=== PATIENT | female | born 1950 | race Caucasian/White ===

== ENCOUNTER 2017-12-09 10:33 | Emergency (ER) | payer MEDICARE, OTHER ==
[2017-12-09 10:40] VITALS: BMI 46.5
[2017-12-09] MEDS: ALBUTEROL SO4 2.5/IPRATROPIUM 0.5 INH SOL 3 ML VIAL.NEB. NEB SCH ×4 (10:40→12:01)
[2017-12-09] MEDS ORDERED: DEXAMETHASONE LIQUID 0.5 MG/5 ML 240 ML BULK BOTTLE PO ONE (11:13)
[2017-12-09] MEDS ORDERED: DEXAMETHASONE SOD PHOSPHATE 10 MG/1 ML VIAL ONE (11:16)
[2017-12-09] MEDS ORDERED: ALBUTEROL SO4 2.5/IPRATROPIUM 0.5 INH SOL 3 ML VIAL.NEB. NEB ONE (11:16)
--- NOTE | 2017-12-09 11:17 | PDOC ---
History of Present Illness - General Chief Complaint: Asthma Stated Complaint: ASTHMA Time Seen by Provider: 12/09/17 11:09 - History of Present Illness Initial Comments: 67-year-old female presents for evaluation of 4 days of cough. She has a history of asthma her symptoms have been unresolved with home albuterol. Past medical history significant for hypertension and dyslipidemia as well as diabetes. She complains of subjective fever at night. No significant past surgical history she denies it. NO KNOWN DRUG ALLERGIES 12/09/17 11:15 Past History - Past Medical History Allergies/Adverse Reactions: Allergies Allergy/AdvReac Type Severity Reaction Status Date / Time No Known Allergies Allergy Verified 12/09/17 10:37 Home Medications: Ambulatory Orders Lantus 50 unit SQ AM 08/18/11 Lipitor 20 mg PO AM 08/18/11 NovoLOG 5 - 10 unit SQ ASDIR 08/18/11 Zoloft 50 mg PO AM 08/18/11 Insulin (Levemir) [Levemir Flexpen -] 25 units SQ ACBK pen 02/16/15 Valsartan [Diovan] 160 mg PO DAILY tablet 02/16/15 metFORMIN HCL [Glucophage -] 500 mg PO DAILY tablet 02/16/15 Anemia: No Asthma: Yes Cancer: No Cardiac Disorders: No CVA: No COPD: No CHF: No Dementia: No Diabetes: Yes (iddm) GI Disorders: No Disorders: No HTN: Yes Hypercholesterolemia: Yes Liver Disease: No Seizures: No Thyroid Disease: No - Surgical History Abdominal Surgery: Yes (tubal ligation,umb hernia) Appendectomy: No Cardiac Surgery: No Cholecystectomy: Yes Lung Surgery: No Neurologic Surgery: No Orthopedic Surgery: No - Immunization History Immunization Up to Date: Yes - Suicide/Smoking/Psychosocial Hx Smoking History: Never smoked Have you smoked in the past 12 months: No Hx Alcohol Use: No Drug/Substance Use Hx: No Substance Use Type: None Hx Substance Use Treatment: No Review of Systems - Review of Systems Constitutional: Yes: Fever HEENTM: Yes: See HPI Respiratory: Yes: Cough, Shortness of Breath, Wheezing Cardiac (ROS): No: Chest Pain ABD/GI: Yes: See HPI : No: See HPI All Other Systems: Reviewed and Negative *Physical Exam - Vital Signs Last Vital Signs Temp Pulse Resp BP Pulse Ox 98.5 F 84 22 158/87 99 12/09/17 10:37 12/09/17 10:37 12/09/17 10:37 12/09/17 10:37 12/09/17 10:37 - Physical Exam Comments: GENERAL: [The patient is awake, alert, and fully oriented, in no acute distress. ] HEAD: [Normal with no signs of trauma.] EYES: [Pupils equal, round and reactive to light, extraocular movements intact, sclera anicteric, conjunctiva clear.] ENT: [Ears normal, nares patent, oropharynx clear without exudates. Moist mucous membranes.] NECK: [Normal range of motion, supple without lymphadenopathy, JVD, or masses.] LUNGS: [She has diffuse coarse rhonchi and wheezes.] HEART: [Regular rate and rhythm, normal S1 and S2 without murmur, rub or gallop. ] ABDOMEN: [Soft, nontender, normoactive bowel sounds. No guarding, no rebound. No masses.] EXTREMITIES: [Normal range of motion, no edema. No clubbing or cyanosis. No cords, erythema, or tenderness.] NEUROLOGICAL: [Cranial nerves II through XII grossly intact. Normal speech, normal gait.] PSYCH: [Normal mood, normal affect.] SKIN: [Warm, Dry, normal turgor, no rashes or lesions noted.] 12/09/17 11:16 ED Treatment Course - RADIOLOGY Radiology Studies Ordered: Category Date Time Status CHEST - PA [RAD] Stat Radiology 12/09/17 11:14 Ordered Medical Decision Making - Medical Decision Making Symptoms unresolved after 4 albuterol DuoNeb treatments. Discussed a plan for admission and she is in agreement. 12/09/17 12:34 12/09/17 12:36 Discussed with ER PA who will accept the patient for further evaluation and treatment and possibly admission *DC/Admit/Observation/Transfer Diagnosis at time of Disposition: Asthma attack - Discharge Dispostion Condition at time of disposition: Unchanged/Unknown Decision to Admit order: Yes Decision to Admit order Date/Time: Will admit her for an asthma 12/09/17 12:35 - Referrals - Patient Instructions - Post Discharge Activity
--- NOTE | 2017-12-09 12:30 | PDOC ---
*Physical Exam - Vital Signs Last Vital Signs Temp Pulse Resp BP Pulse Ox 98.5 F 84 22 158/87 99 12/09/17 10:37 12/09/17 10:37 12/09/17 10:37 12/09/17 10:37 12/09/17 10:37 - Physical Exam General Appearance: Yes: Appropriately Dressed. No: Apparent Distress HEENT: positive: Normal Voice Neck: positive: Supple Respiratory/Chest: positive: Wheezing. negative: Respiratory Distress Cardiovascular: positive: Regular Rate, S1, S2 Extremity: positive: Normal Inspection. negative: Swelling Integumentary: positive: Dry, Warm Neurologic: positive: Fully Oriented, Alert, Normal Mood/Affect ED Treatment Course - Medications Given in the ED: ED Medications Discontinued Medications Generic Name Dose Route Start Last Admin Trade Name Freq PRN Reason Stop Dose Admin Albuterol/Ipratropium 1 amp 12/09/17 11:15 12/09/17 12:01 Duoneb - NEB 12/09/17 12:01 1 amp Q15M JORGE Administration Dexamethasone 10 mg 12/09/17 11:13 12/09/17 11:22 Decadron Liquid - PO 12/09/17 11:14 10 mg ONCE ONE Administration Medical Decision Making - Medical Decision Making 12/09/17 12:30 Pt bumped over from fast track and received sign out from PT Halle [id number] female, history of hypertension, diabetes, asthma, admissions or intubations, here with sob and wheezing, similar to her asthma exacerbation found to be stable but diffusely wheezing in fast track and has since been given multiple DuoNeb and steroids, but continues to wheeze. Chest x-ray normal. Will get EKG, labs, ordered dose of mag and reassess 12/09/17 14:56 Patient signed out to Dr. Cameron awaiting labs and reassessment *DC/Admit/Observation/Transfer Diagnosis at time of Disposition: Asthma attack Qualifiers: Asthma severity: unspecified severity Asthma persistence: unspecified Qualified Code(s): J45.901 - Unspecified asthma with (acute) exacerbation - Discharge Dispostion Condition at time of disposition: Unchanged/Unknown - Referrals - Patient Instructions - Post Discharge Activity
[2017-12-09] MEDS ORDERED: MAGNESIUM SULF 50% (8.12 MEQ/2 ML-1 GM VIAL) IVPB ONE (12:31)
[2017-12-09] MEDS ORDERED: MAGNESIUM SULF 50% (8.12 MEQ/2 ML-1 GM VIAL) ONE (13:50)
[2017-12-09] MEDS ORDERED: AZITHROMYCIN 500 MG TABLET PO ONE (14:58)
--- NOTE | 2017-12-09 15:06 | PDOC ---
*Physical Exam - Vital Signs Last Vital Signs Temp Pulse Resp BP Pulse Ox 98.5 F 84 22 158/87 99 12/09/17 10:37 12/09/17 10:37 12/09/17 10:37 12/09/17 10:37 12/09/17 10:37 - Physical Exam Comments: 12/09/17 15:00 Gen: aaox3, cough- bronchospastic heart: +s1s2 tachy lungs: diffuse wheezing, coarse bs b/l abd: soft, obese ED Treatment Course - LABORATORY CBC & Chemistry Diagram: 12/09/17 15:02 12/09/17 15:02 - Medications Given in the ED: ED Medications Discontinued Medications Generic Name Dose Route Start Last Admin Trade Name Freq PRN Reason Stop Dose Admin Albuterol/Ipratropium 1 amp 12/09/17 11:15 12/09/17 12:01 Duoneb - NEB 12/09/17 12:01 1 amp Q15M JORGE Administration Dexamethasone 10 mg 12/09/17 11:13 12/09/17 11:22 Decadron Liquid - PO 12/09/17 11:14 10 mg ONCE ONE Administration Magnesium Sulfate 2 gm 12/09/17 12:31 12/09/17 13:50 Magnesium Sulfate IVPB 12/09/17 12:32 2 gm ONCE ONE Administration Medical Decision Making - Medical Decision Making 12/09/17 15:05 a/p: 67yo female signed out pending labs, cxr, further eval of asthma exacerbation -cxr without acute infiltrate -wheezing still despite nebs, steroids, mag -feeling better, but still with cough -labs pending, will continue to monitor -pt upgraded from Fast Track *DC/Admit/Observation/Transfer Diagnosis at time of Disposition: Asthma attack Qualifiers: Asthma severity: unspecified severity Asthma persistence: unspecified Qualified Code(s): J45.901 - Unspecified asthma with (acute) exacerbation - Discharge Dispostion Disposition: HOME Condition at time of disposition: Good - Prescriptions Prescriptions: Albuterol Sulfate Inhaler - [Ventolin HFA Inhaler -] 1 - 2 inh PO QID #1 inhaler Azithromycin 250 mg PO DAILY #4 tablet Guaifenesin 200 mg PO BID #10 tablet predniSONE [Deltasone -] 40 mg PO DAILY #4 tablet - Referrals - Patient Instructions Printed Discharge Instructions: DI for Asthma -- Adult Additional Instructions: You were seen today in the ED for an asthma exacerbation. Please return if you have any new, worsening or concerning symptoms. Please follow up with your primary care physician. You were prescribed an antibiotic today. Your next dose will be tomorrow. Please complete the entire course of antibiotics even if you feel better. You were prescribed steroids today. Your next dose will be tomorrow. Please complete the entire course of steroids even if you feel better. - Post Discharge Activity - Attestations Physician Attestion: 12/10/17 21:37 I, Dr. Dorothy Henning, DO, attest that this document has been prepared under my direction and personally reviewed by me in its entirety. I further attest, that it accurately reflects all work, treatment, procedures and medical decision -making performed by me.
[2017-12-09] MEDS ORDERED: AZITHROMYCIN 250 MG TABLET ONE (15:11)
[2017-12-09 15:41] LABS: BASO % 0.5 % (0-2.0); EOS % 0.3 % (0-4.5); HEMATOCRIT 35.4 % (32.4-45.2); HEMOGLOBIN 11.1 GM/dL (10.7-15.3); LYMPH % 10.7 % (8-40); MCH 22.1 pg (25.7-33.7); MCHC 31.5 g/dl (32.0-36.0); MEAN CELL VOLUME 70.2 fl (80-96); MEAN PLT VOLUME 9.1 fl (7.5-11.1); MONO % 2.4 % (3.8-10.2); NEUT % 86.1 % (42.8-82.8); PLATELET COUNT 213 K/MM3 (134-434); RBC 5.04 M/mm3 (3.60-5.2); RDW 17.8 % (11.6-15.6); WHITE BLOOD COUNT 4.7 K/mm3 (4.0-10.0)
[2017-12-09 16:08] LABS: ALBUMIN 3.9 g/dl (3.4-5.0); ANION GAP 10 (8-16); BILIRUBIN,TOTAL 0.2 mg/dL (0.2-1.0); BLOOD UREA NITROGEN 15 mg/dL (7-18); CALCIUM 8.9 mg/dL (8.5-10.1); CHLORIDE 100 mmol/L (98-107); CO2 27 mmol/L (21-32); CREATININE 0.8 mg/dL (0.55-1.02); GLUCOSE,RANDOM 200 mg/dL (74-106); POTASSIUM 4.2 mmol/L (3.5-5.1); SGOT/AST 49 U/L (15-37); SGPT/ALT 46 U/L (12-78); SODIUM 137 mmol/L (136-145); TOT PROT 8.1 g/dl (6.4-8.2)
[2017-12-09 16:09] LABS: ALK PHOS 73 U/L (45-117)
--- NOTE | 2017-12-09 16:27 | PDOC ---
*Physical Exam - Vital Signs Last Vital Signs Temp Pulse Resp BP Pulse Ox 98.5 F 84 22 158/87 99 12/09/17 10:37 12/09/17 10:37 12/09/17 10:37 12/09/17 10:37 12/09/17 10:37 - Physical Exam Comments: 12/09/17 16:11 GENERAL: Awake, alert, and fully oriented, in no acute distress HEAD: No signs of trauma, normocephalic, atraumatic EYES: PERRLA, EOMI, sclera anicteric, conjunctiva clear ENT: Auricles normal inspection, hearing grossly normal, nares patent, oropharynx clear without exudates. Moist mucosa NECK: Normal ROM, supple, no lymphadenopathy, JVD, or masses LUNGS: No distress. Positive for rales and wheezing. No tachypnea. HEART: Regular rate and rhythm, normal S1 and S2, no murmurs, rubs or gallops, peripheral pulses normal and equal bilaterally. EXTREMITIES: Normal inspection, Normal range of motion, no edema. No clubbing or cyanosis. NEUROLOGICAL: Cranial nerves II through XII grossly intact. Normal speech, normal gait, no focal sensorimotor deficits SKIN: Warm, Dry, normal turgor, no rashes or lesions noted. ED Treatment Course - LABORATORY CBC & Chemistry Diagram: 12/09/17 15:02 12/09/17 15:02 - Medications Given in the ED: ED Medications Discontinued Medications Generic Name Dose Route Start Last Admin Trade Name Freq PRN Reason Stop Dose Admin Albuterol/Ipratropium 1 amp 12/09/17 11:15 12/09/17 12:01 Duoneb - NEB 12/09/17 12:01 1 amp Q15M JORGE Administration Azithromycin 500 mg 12/09/17 14:58 12/09/17 15:00 Azithromycin PO 12/09/17 14:59 500 mg ONCE ONE Administration Dexamethasone 10 mg 12/09/17 11:13 12/09/17 11:22 Decadron Liquid - PO 12/09/17 11:14 10 mg ONCE ONE Administration Magnesium Sulfate 2 gm 12/09/17 12:31 12/09/17 13:50 Magnesium Sulfate IVPB 12/09/17 12:32 2 gm ONCE ONE Administration Medical Decision Making - Medical Decision Making 12/09/17 16:27 Patient is a 67F with history of asthma here today with asthma exacerbation. Improved with duonebs x4, mag. Labs pending. CXR clear. Labs pending. Given 500mg azithromycin. 12/09/17 16:35 Laboratory Tests 12/09/17 12/09/17 15:02 15:02 WBC 4.7 Hgb 11.1 Plt Count 213 D BUN 15 Creatinine 0.8 Random Glucose 200 H CBC normal. CMP reassuring. Patient is improved and ambulating without shortness of breath. Will discharge home with return precautions. *DC/Admit/Observation/Transfer Diagnosis at time of Disposition: Asthma attack Qualifiers: Asthma severity: unspecified severity Asthma persistence: unspecified Qualified Code(s): J45.901 - Unspecified asthma with (acute) exacerbation - Discharge Dispostion Disposition: HOME Condition at time of disposition: Good Decision to Admit order: No - Prescriptions Prescriptions: Albuterol Sulfate Inhaler - [Ventolin HFA Inhaler -] 1 - 2 inh PO QID #1 inhaler Azithromycin 250 mg PO DAILY #4 tablet Guaifenesin 200 mg PO BID #10 tablet predniSONE [Deltasone -] 40 mg PO DAILY #4 tablet - Referrals - Patient Instructions Printed Discharge Instructions: DI for Asthma -- Adult Additional Instructions: You were seen today in the ED for an asthma exacerbation. Please return if you have any new, worsening or concerning symptoms. Please follow up with your primary care physician. You were prescribed an antibiotic today. Your next dose will be tomorrow. Please complete the entire course of antibiotics even if you feel better. You were prescribed steroids today. Your next dose will be tomorrow. Please complete the entire course of steroids even if you feel better. - Post Discharge Activity
[2017-12-09 17:04] VITALS: BP 160/88; PULSE 89; TEMP 98.2
== END 2017-12-09 17:04 | disposition home or self-care (01) ==
LOC: JERFT 10:33 → JER 10:33
PROC: 3E0F7GC Introduction of Other Therapeutic Substance into Respiratory Tract, Via Natural or Artificial Opening (ICD-10-PCS; principal; 2017-12-09)
PROC: 3E033GC Introduction of Other Therapeutic Substance into Peripheral Vein, Percutaneous Approach (ICD-10-PCS; 2017-12-09)
DX: J45.901 Unspecified asthma with (acute) exacerbation (principal); I10 Essential (primary) hypertension; E78.00 Pure hypercholesterolemia, unspecified; E11.9 Type 2 diabetes mellitus without complications
CPT/HCPCS: 36415; 71045-TC-FY; 80053; 85025; 99283-25; J7620

== ENCOUNTER 2019-01-03 15:45 | Observation (INO) | payer OTHER ==
[2019-01-03 15:53] VITALS: BMI 45.5
--- NOTE | 2019-01-03 17:46 | PDOC ---
History of Present Illness - General Chief Complaint: Chest Pain Stated Complaint: CHEST PAIN Time Seen by Provider: 01/03/19 17:46 History Source: Patient Exam Limitations: No Limitations - History of Present Illness Initial Comments: 01/03/19 18:04 68 year old female with PMH HTN, DM, HLD, asthma panic disorder presented to ED for chest pain x1 week. Pt stated her chest pain is intermittent, substernal, nonradiating, no alleviating or aggravating factors, no association with exertion, no association with exertion, lasting 10-20 minutes at a time, occurring around four days a week. Allergies: NKDA Family cardiac history - Father (+) [place] in 60s. Mother (-) for [place]. Siblings (-) for [place]. Past History - Past Medical History Allergies/Adverse Reactions: Allergies Allergy/AdvReac Type Severity Reaction Status Date / Time No Known Allergies Allergy Verified 01/03/19 15:53 Home Medications: Ambulatory Orders Acetaminophen [Tylenol .Extra-Strength -] 500 mg PO DAILY PRN 01/04/19 Aspirin 81 mg PO DAILY 01/04/19 Buspirone HCl [Buspar -] 5 mg PO BID 01/04/19 Cetirizine HCl 10 mg PO DAILY 01/04/19 Insulin Glargine,Hum.rec.anlog [Lantus] 80 unit SQ AM 01/04/19 Sertraline HCl [Zoloft -] 50 mg PO DAILY 01/04/19 Valsartan 160 mg PO DAILY 01/04/19 Zolpidem Tartrate [Ambien] 5 mg PO DAILY 01/04/19 metFORMIN HCL [Glucophage -] 1,000 mg PO BID 01/04/19 Anemia: No Asthma: Yes Cancer: No Cardiac Disorders: No CVA: No COPD: No CHF: No Dementia: No Diabetes: Yes (iddm) GI Disorders: No Disorders: No HTN: Yes Hypercholesterolemia: Yes Liver Disease: No Seizures: No Thyroid Disease: No - Surgical History Abdominal Surgery: Yes (tubal ligation,umb hernia) Appendectomy: No Cardiac Surgery: No Cholecystectomy: Yes Lung Surgery: No Neurologic Surgery: No Orthopedic Surgery: No - Immunization History Immunization Up to Date: Yes - Suicide/Smoking/Psychosocial Hx Smoking History: Never smoked Have you smoked in the past 12 months: No Information on smoking cessation initiated: No Hx Alcohol Use: No Drug/Substance Use Hx: No Substance Use Type: None Hx Substance Use Treatment: No Review of Systems - Review of Systems Able to Perform ROS?: Yes Comments:: 01/03/19 18:05 General: denied fever, chills, generalized weakness. HEENT: denied sore throat, rhinorrhea, ear pain. Heart: admitted to chest pain. denied palpitations, syncope, diaphoresis. Respiratory: denied shortness of breath, cough, sputum production, hemoptysis. Abdomen: denied abdominal pain, nausea, vomiting, diarrhea, constipation, blood in stool. : denied dysuria, increased urinary frequency, hematuria, urinary incontinence , flank pain. Back: denied back pain. Musculoskeletal: denied joint pain, muscle pain, joint swelling. Neurological: denied headache, dizziness, numbness, tingling, weakness. Skin: denied rash, laceration, abrasion. *Physical Exam - Vital Signs Last Vital Signs Temp Pulse Resp BP Pulse Ox 98.3 F 71 19 154/56 L 97 01/03/19 15:51 01/03/19 15:51 01/03/19 15:51 01/03/19 15:51 01/03/19 15:51 - Physical Exam Comments: 01/03/19 18:06 Constitutional: Well-nourished, Well-developed, appearing stated age. HEENT: head is normocephalic, atraumatic. EOMI. PERRLA. Neck: supple. Full ROM. Heart: regular rhythm. no murmurs, rubs or gallops. Lungs: mild wheezing bilaterally. no crackles, rhonchi. no stridor. Abdomen: soft, nontender. normal bowel sounds. no rebound, guarding, masses. Extremities: peripheral pulses intact. no lower extremity edema. Neurological: CN 2-12 grossly intact. moves all four extremities. Psych: awake, alert, oriented x3. follows commands. answers questions appropriately. Heart Score/ECG Review - History History: Slightly suspicious - Electrocardiogram EKG: Non specific repolarization disturbance - Age Age: >/= 65 - Risk Factors Risk Factors Heart Score: Yes Hx Hypertension, Yes Hx Diabetes, Yes Hx Obesity Based on the list above the patient has:: >/=3 risk factors or Hx atherosclerotic disease - Troponin Troponin: </= normal limit - Score Heart Score - Total: 5 ED Treatment Course - LABORATORY CBC & Chemistry Diagram: 01/04/19 06:00 01/04/19 06:00 Medical Decision Making - Medical Decision Making 01/03/19 18:06 68 year old female with above PMH presented to ED for chest pain x1 week. Initial Vital Signs Temp Pulse Resp BP Pulse Ox 98.3 F 71 19 154/56 L 97 01/03/19 15:51 01/03/19 15:51 01/03/19 15:51 01/03/19 15:51 01/03/19 15:51 Afebrile. No tachycardia. No tachypnea. Mild systolic hypertension. No hypoxia on room air. Labs ordered: CBC, CMP, troponin, BNP Imaging ordered: CXR Medications ordered: ASA 162 mg PO chew, tylenol 975 mg PO once, solumedrol 125 mg IV once, duonebx3 EKG performed at 1539: rate 79, regular rhythm, left axis, low voltage, normal intervals, no acute ST changes. ECHO 01/20/18 - normal EF. 01/03/19 19:07 CMP Sodium 140 mmol/L (136-145) 01/03/19 17:53 Potassium 4.3 mmol/L (3.5-5.1) 01/03/19 17:53 Chloride 106 mmol/L (98-107) 01/03/19 17:53 Carbon Dioxide 30 mmol/L (21-32) 01/03/19 17:53 Anion Gap 4 MMOL/L (8-16) L 01/03/19 17:53 BUN 14.0 mg/dL (7-18) 01/03/19 17:53 Creatinine 0.8 mg/dL (0.55-1.3) 01/03/19 17:53 Est GFR (CKD-EPI)AfAm 89.04 01/03/19 17:53 Est GFR (CKD-EPI)NonAf 76.83 01/03/19 17:53 Random Glucose 125 mg/dL (74-106) H 01/03/19 17:53 Calcium 9.2 mg/dL (8.5-10.1) 01/03/19 17:53 Magnesium 2.4 mg/dL (1.8-2.4) 01/03/19 17:53 Total Bilirubin 0.2 mg/dL (0.2-1) 01/03/19 17:53 AST 41 U/L (15-37) H 01/03/19 17:53 ALT 47 U/L (13-61) 01/03/19 17:53 Alkaline Phosphatase 69 U/L (45-117) 01/03/19 17:53 Troponin I < 0.02 ng/ml (0.00-0.05) 01/03/19 17:53 B-Natriuretic Peptide 129.3 pg/ml (5-125) H 01/03/19 17:53 Total Protein 7.6 g/dl (6.4-8.2) 01/03/19 17:53 Albumin 3.9 g/dl (3.4-5.0) 01/03/19 17:53 No electrolyte abnormalities. No PALLAVI. No transaminitis. Troponin undetectable. CBC WBC 6.6 K/mm3 (4.0-10.0) 01/03/19 17:53 RBC 4.81 M/mm3 (3.60-5.2) 01/03/19 17:53 Hgb 11.0 GM/dL (10.7-15.3) 01/03/19 17:53 Hct 34.8 % (32.4-45.2) 01/03/19 17:53 MCV 72.4 fl (80-96) L 01/03/19 17:53 MCH 22.8 pg (25.7-33.7) L 01/03/19 17:53 MCHC 31.5 g/dl (32.0-36.0) L 01/03/19 17:53 RDW 17.7 % (11.6-15.6) H 01/03/19 17:53 Plt Count 214 K/MM3 (134-434) 01/03/19 17:53 MPV 9.1 fl (7.5-11.1) 01/03/19 17:53 Absolute Neuts (auto) 4.0 K/mm3 (1.5-8.0) 01/03/19 17:53 Neutrophils % 59.8 % (42.8-82.8) D 01/03/19 17:53 Lymphocytes % 32.3 % (8-40) D 01/03/19 17:53 Monocytes % 4.6 % (3.8-10.2) D 01/03/19 17:53 Eosinophils % 2.4 % (0-4.5) D 01/03/19 17:53 Basophils % 0.9 % (0-2.0) 01/03/19 17:53 Nucleated RBC % 0 % (0-0) 01/03/19 17:53 No leukocytosis. No anemia. Low MCV. CXR my view: sharp costophrenic angles. no infiltrate. no cardiomegaly. no pulmonary vascular congestion. -Pending official report 01/03/19 19:46 HEART score = 5 Pt to be admitted to tele/obs for chest pain. Pending admission. 01/03/19 23:08: EKG performed at 2258: rate 83, regular rhythm, left axis, no acute ST changes. 01/05/19 13:49 Follow up: Official CXR report: Since prior chest x-ray dated 12/09/2017, the cardiac silhouette remains within normal limits in size. Mild to moderate unfolding of the aortic arch. There are mild bilateral perihilar increased lung markings. Mild degenerative changes and anterior spondylosis in the thoracic spine again seen Impression: No significant interval change or acute cardiopulmonary disease is present Reported By: Zak Yun MD 01/03/192044 *DC/Admit/Observation/Transfer Diagnosis at time of Disposition: Chest pain, Asthma exacerbation - Discharge Dispostion Condition at time of disposition: Improved Decision to Admit order: Yes - Referrals - Patient Instructions - Post Discharge Activity
[2019-01-03] MEDS ORDERED: ASPIRIN 81 MG CHEWABLE TABLETS PO ONE (17:52)
[2019-01-03 18:08] LABS: BASO % 0.9 % (0-2.0); EOS % 2.4 % (0-4.5); HEMATOCRIT 34.8 % (32.4-45.2); LYMPH % 32.3 % (8-40); MCH 22.8 pg (25.7-33.7); MCHC 31.5 g/dl (32.0-36.0); MEAN CELL VOLUME 72.4 fl (80-96); MEAN PLT VOLUME 9.1 fl (7.5-11.1); MONO % 4.6 % (3.8-10.2); NEUT % 59.8 % (42.8-82.8); PLATELET COUNT 214 K/MM3 (134-434); RBC 4.81 M/mm3 (3.60-5.2); RDW 17.7 % (11.6-15.6); WHITE BLOOD COUNT 6.6 K/mm3 (4.0-10.0)
[2019-01-03] MEDS ORDERED: ACETAMINOPHEN 325 MG TABLET (FP) PO ONE (18:08)
[2019-01-03 18:43] LABS: ALBUMIN 3.9 g/dl (3.4-5.0); ALK PHOS 69 U/L (45-117); ANION GAP 4 MMOL/L (8-16); BILIRUBIN,TOTAL 0.2 mg/dL (0.2-1); CALCIUM 9.2 mg/dL (8.5-10.1); CHLORIDE 106 mmol/L (98-107); CO2 30 mmol/L (21-32); CREATININE 0.8 mg/dL (0.55-1.3); GLUCOSE,RANDOM 125 mg/dL (74-106); MAGNESIUM 2.4 mg/dL (1.8-2.4); N-TERMINAL BNP 129.3 pg/ml (5-125); POTASSIUM 4.3 mmol/L (3.5-5.1); SGOT/AST 41 U/L (15-37); SGPT/ALT 47 U/L (13-61); SODIUM 140 mmol/L (136-145); TOT PROT 7.6 g/dl (6.4-8.2)
[2019-01-03] MEDS ORDERED: ACETAMINOPHEN 325 MG TABLET (FP) ONE (18:50)
[2019-01-03] MEDS ORDERED: ASPIRIN 81 MG CHEWABLE TABLETS ONE (18:50)
--- NOTE | 2019-01-03 20:06 | PDOC ---
Documentation entered by Tj Morris SCRIBE, acting as scribe for Kinsey Ureña DO. Kinsey Ureña DO: This documentation has been prepared by the Alexandra sesay Nirvannie, SCRIBE, under my direction and personally reviewed by me in its entirety. I confirm that the documentation accurately reflects all work, treatment, procedures, and medical decision making performed by me. Attending Attestation - Resident Resident Name: Kortney Day - ED Attending Attestation I have performed the following: I have examined & evaluated the patient, The case was reviewed & discussed with the resident, I agree w/resident's findings & plan - HPI HPI: 01/03/19 19:01 The patient is a 68 year old female, with a significant past medical history of HTN, DM, and panic disorder, who presents to the emergency department with, 1 week of intermittent, substernal chest pain lasting 10-20min approx 4x/week. She denies any nausea or vomiting. Allergies: NKDA Primary Care Physician: Dr. Terry Pal - Physicial Exam PE: 01/03/19 19:01 Agree with resident exam. - Medical Decision Making 01/03/19 20:05 68-year-old female with chest pain Heart score is 5 EKG shows no acute ST segment changes, there is no old readily available for comparison Plan for observation and serial troponins
--- NOTE | 2019-01-03 20:06 | PN ---
Teaching Attending Note Name of Resident: Sergey Hansen ATTENDING PHYSICIAN STATEMENT I saw and evaluated the patient. I reviewed the resident's note and discussed the case with the resident. I agree with the resident's findings and plan as documented. SUBJECTIVE: Patient is a 68 year old woman with a PMH of HTN, NIDDM, HLD, asthma and panic disorder presenting to the ER for chest pain for 1 week. Says her chest pain is intermittent, substernal, nonradiating with no alleviating or aggravating factors,. There is no association with exertion and it last 10-20 minutes at a time, occurring around four time a week. Has had associated SOB, JOSE and orthopnea. No family history of premature CAD. Has also had LUQ abdominal pain. Had normal EGD and colonoscopy in February 2018. Had a normal ECHO last year. Denies fever, chills, generalized weakness, palpitations, diaphoresis, cough, abdominal pain, nausea, vomiting, diarrhea, constipation, dysuria, headache or dizziness. Was noted to be wheezing on arrival and got Solumedrol 125 mg and Duoneb in the ER. Also got Aspirin 162 mg PO in the ER. OBJECTIVE: Alert Vital Signs Period Temp Pulse Resp BP Sys/Marie Pulse Ox Last 24 Hr 98.3 F 71 19 154/56 97 HEENT: No Jaundice, eye redness or discharge, PERRLA, EOMI. Normocephalic, atraumatic. External ears are normal and hearing is grossly intact. No nasal discharge. Neck: Supple, nontender. No palpable adenopathy or thyromegaly. No JVD Chest: Good effort. Clear to auscultation and percussion. Heart: Regular. No S3, rub or murmur Abdomen: Not distended, soft, LUQ tenderness and no HSM. No rebound or guarding. Normal bowel sounds. Ext: Peripheral pulses intact. No leg edema. Skin: Warm and dry. No petechiae, rash or ecchymosis. Neuro: Alert. Oriented x3. CN 2-12 grossly intact. Sensation grossly intact in all four extremities and DTR are symmetric. Psych: Appropriate mood and affect. Good insight. Home Medications Medication Instructions Recorded Lantus 50 unit SQ AM 08/18/11 Lipitor 20 mg PO AM 08/18/11 NovoLOG 5 - 10 unit SQ ASDIR 08/18/11 Zoloft 50 mg PO AM 08/18/11 Insulin (Levemir) [Levemir Flexpen 25 units SQ ACBK pen 02/16/15 -] Valsartan [Diovan] 160 mg PO DAILY tablet 02/16/15 metFORMIN HCL [Glucophage -] 500 mg PO DAILY tablet 02/16/15 Albuterol Sulfate Inhaler - 1 - 2 inh PO QID #1 inhaler 12/09/17 [Ventolin HFA Inhaler -] Azithromycin 250 mg PO DAILY #4 tablet 12/09/17 Guaifenesin 200 mg PO BID #10 tablet 12/09/17 predniSONE [Deltasone -] 40 mg PO DAILY #4 tablet 12/09/17 Abnormal Lab Results 01/03/19 01/03/19 17:53 17:53 MCV 72.4 L MCH 22.8 L MCHC 31.5 L RDW 17.7 H Anion Gap 4 L Random Glucose 125 H AST 41 H B-Natriuretic Peptide 129.3 H ASSESSMENT AND PLAN: 1. Chest pain - Pain is atypical, but he has risk factors for ACS. EKG shows NSR with no significant ST-T wave changes and initial troponin is negative. No acute abnormality on CXR. Will admit to telemetry to rule out ACS, get ECHO, fasting lipids and consult Cardiology. Etiology of LUQ pain is unclear. Will get a sonogram, treat with Mylanta and refer to GI. 2. DM For now, we will hold the home diabetes drugs and implement sliding scale insulin regimen. Provide comprehensive diabetes care with patient teaching and counseling about the importance of adherence to prescribed diabetes regimen, euglycemia, eye care and foot care. 3. Obesity Counseled on the risks associated with obesity. Will provide patient all the necessary assistance, counseling and positive reinforcement to facilitate weight loss. Consult fermentation scientist. 4. Hypertension - Restart suitable outpatient antihypertensive drugs when clinically appropriate. Revise regimen to ensure good BP control. Nonpharmacologic measures to control hypertension like weight loss, salt restriction and exercise discussed. 5. DVT prophylaxis - Lovenox 40 mg SQ q 24 hours. 6. Advance directives - Full code
[2019-01-03] MEDS ORDERED: ALBUTEROL SO4 2.5/IPRATROPIUM 0.5 INH SOL 3 ML VIAL.NEB. NEB ONE ×2 (20:07→20:22)
[2019-01-03] MEDS ORDERED: methylPREDNISolone NA SUCC 125 MG/2 ML VIAL IVPUSH ONE (20:09)
[2019-01-03] MEDS ORDERED: methylPREDNISolone NA SUCC 125 MG/2 ML VIAL ONE (20:22)
[2019-01-03] MEDS ORDERED: ALBUTEROL SO4 0.083% IH SOL 2.5 MG/3 ML VIAL.NEB. NEB PRN (20:59)
[2019-01-03] MEDS ORDERED: SIMETHICONE 80 MG TAB.CHEW (FP) PO PRN (21:11)
--- NOTE | 2019-01-03 21:14 | HP ---
CHIEF COMPLAINT: Chest pain PCP: Terry Pal HISTORY OF PRESENT ILLNESS: Pt. is a 68 y.o. F w/ PMHx. of HTN, HLD, IDDM, Anxiety, Anemia, Asthma and Obesity presenting for chest pain for 1 week. Pt. states that the pain is substernal and began intermittently. Pt. states that the pain is now constant and 7/10 in severity. Pt. states that it sometimes radiated to her throat and is associated with a shortness of breath. Pt. states that activity make her chest pain worse. Pt. states that this chest pain has never happened before. Pt. states that she is not able to walk 1 block before feeling short of breath. Pt. is unable to lie flat for many years and has to use a pillow and a blanket on her side to sleep. Pt. endorses trying to use her nebulizer this morning for her shortness of breath to no effect. Pt. denies diarrhea fever or chills, but endorses intermittent constipation for up to 3 days. Pt. was discontinued off of iron tablets by Dr. Hebert for this reason. Pt.'s blood sugars at home usually are in the 140s, however this morning they were 232. Pt. states she is on-compliant with her statin because it is only preventative (decreased understanding of the medication). Pt. also endorses LUQ pain that fells like gas. Pt. does endorse waking up in the AM and having burning sensation in the back of her throat. t. had EGD and colonoscopy performed last years which Pt. stated was benign, however Pt. was give a 1 month treatment of PPI. ER course was notable for: (1) ASA 162, Tylenol 975mg, Solumedrol 125, Duonebs (2) EKG, Trop, BNP, CXR (3) Recent Travel: No PAST MEDICAL HISTORY: As above PAST SURGICAL HISTORY: Umbilical Hernia, Bilateral Tubal Ligation, CCY Social History: Smoking: Denies, however has 6 years of second hand smoke Alcohol: Remote moderate drinker, now only occasionally 1-2 drinks (last in August) Drugs: Denies Family History: Father of [place] in 70s, Uncle of [place] in 60s, Grandmother of [place] Allergies No Known Allergies Allergy (Verified 01/03/19 15:53) HOME MEDICATIONS: Home Medications Medication Instructions Recorded Lantus 50 unit SQ AM 08/18/11 Lipitor 20 mg PO AM 08/18/11 NovoLOG 5 - 10 unit SQ ASDIR 08/18/11 Zoloft 50 mg PO AM 08/18/11 Insulin (Levemir) [Levemir Flexpen 25 units SQ ACBK pen 02/16/15 -] Valsartan [Diovan] 160 mg PO DAILY tablet 02/16/15 metFORMIN HCL [Glucophage -] 500 mg PO DAILY tablet 02/16/15 Albuterol Sulfate Inhaler - 1 - 2 inh PO QID #1 inhaler 12/09/17 [Ventolin HFA Inhaler -] Azithromycin 250 mg PO DAILY #4 tablet 12/09/17 Guaifenesin 200 mg PO BID #10 tablet 12/09/17 predniSONE [Deltasone -] 40 mg PO DAILY #4 tablet 12/09/17 REVIEW OF SYSTEMS As above PHYSICAL EXAMINATION Vital Signs - 24 hr 01/03/19 15:51 Temperature 98.3 F Pulse Rate 71 Respiratory 19 Rate Blood Pressure 154/56 L O2 Sat by Pulse 97 Oximetry (%) GENERAL: Awake, alert, and fully oriented, in mild distress. HEAD: Normal with no signs of trauma. EYES: Extraocular movements intact, sclera anicteric, conjunctiva clear. EARS, NOSE, THROAT: Ears normal, nares patent, oropharynx clear without exudates. Moist mucous membranes. NECK: Normal range of motion, supple without lymphadenopathy, JVD, or masses. LUNGS: Breath sounds equal, clear to auscultation bilaterally. No wheezes, and no crackles. No accessory muscle use. Unable to lie flat. HEART: Regular rate and rhythm, normal S1 and S2 without murmur ABDOMEN: Soft, obese LUQ tenderness, not distended, normoactive bowel sounds, no guarding, no rebound, no masses. MUSCULOSKELETAL: Normal range of motion at all joints. No bony deformities or tenderness. No CVA tenderness. UPPER EXTREMITIES: 2+ radial pulses, warm, well-perfused. No cyanosis. No clubbing. No peripheral edema. LOWER EXTREMITIES: warm, well-perfused. No calf tenderness. No peripheral edema. NEUROLOGICAL: Normal speech. Gait not assesed. PSYCHIATRIC: Cooperative. Good eye contact. Appropriate mood and affect. SKIN: Warm, dry, normal turgor, no rashes or lesions noted Laboratory Results - last 24 hr 01/03/19 01/03/19 17:53 17:53 WBC 6.6 RBC 4.81 Hgb 11.0 Hct 34.8 MCV 72.4 L MCH 22.8 L MCHC 31.5 L RDW 17.7 H Plt Count 214 MPV 9.1 Absolute Neuts (auto) 4.0 Neutrophils % 59.8 D Lymphocytes % 32.3 D Monocytes % 4.6 D Eosinophils % 2.4 D Basophils % 0.9 Nucleated RBC % 0 Sodium 140 Potassium 4.3 Chloride 106 Carbon Dioxide 30 Anion Gap 4 L BUN 14.0 Creatinine 0.8 Est GFR (CKD-EPI)AfAm 89.04 Est GFR (CKD-EPI)NonAf 76.83 Random Glucose 125 H Calcium 9.2 Magnesium 2.4 Total Bilirubin 0.2 AST 41 H ALT 47 Alkaline Phosphatase 69 Troponin I < 0.02 B-Natriuretic Peptide 129.3 H Total Protein 7.6 Albumin 3.9 ASSESSMENT/PLAN: Pt. is a 68 y.o. F w/ PMHx. of HTN, HLD, IDDM, Anxiety, Anemia, Asthma and Obesity presenting for chest pain for 1 week. Pt. states that the pain is substernal and began intermittently, now constant. #Chest pain w/o EKG changes Trop Neg. x 1, f/u Rpt. EKG showed no ST segment changes, no TWI, no Q-waves f/u Rpt. Heart Score: 5 Echo (01/20/18): normal EF, mild concentric LVH, mild MR; f/u Rpt. Echo CXR: clear CDA, no foci of infiltrate or congestion Cardiology consult (Dr. Lorenzo)appreciated, will likely need stress test given worsening of chest pain on exertion, strong family history and co-morbid factors. #IDDM hold Metformin Pt. states she gets "weekly injections for her appetite/diabetes." Levemir 40units SQ AM (Home dose is 80 units) BGMs ACHS ISS ACHS #Shortness of breath 2/2 Asthma exacerbation vs. Anxiety Given Solumedrol 125 in ED, would hold steroids for now, if worsening would start Prednisone Pt. states she does not require her inhaler or nebulizer frequently--> Intermittent c/w Duonebs PRN would benefit from outpatient sleep study given BMI and risk factors, likely has component of RICARDA and OHS. f/u Sleep screen #Left Upper Quadrant Abdominal Pain will try Simethicone- for bloating f/u LUQ Abd. US #HLD Pt. states that she does not take Lipitor Will need to restart on discharge f/u Lipid panel--> determine ACSVD risk (likely high) #FEN no IVF monitor electrolytes and replete as needed NPO for lipid panel and possible stress test tomorrow #DVT Ppx. Lovenox 40mg SQ Visit type - Emergency Visit Emergency Visit: Yes ED Registration Date: 01/03/19 Care time: The patient presented to the Emergency Department on the above date and was hospitalized for further evaluation of their emergent condition. - New Patient This patient is new to me today: Yes Date on this admission: 01/02/19 - Critical Care Critical Care patient: No
[2019-01-03] MEDS: INSULIN SLIDING SCALE (NOVOLOG) 1 VIAL SQ SCH (22:11)
[2019-01-04] MEDS ORDERED: HEPARIN NA (PORCINE) 5,000 UNITS/ML 1ML VIAL SQ SCH (06:00)
[2019-01-04 06:48] LABS: HEMATOCRIT 33.8 % (32.4-45.2); HEMOGLOBIN 10.6 GM/dL (10.7-15.3); MCH 22.4 pg (25.7-33.7); MCHC 31.3 g/dl (32.0-36.0); MEAN CELL VOLUME 71.7 fl (80-96); MEAN PLT VOLUME 9.1 fl (7.5-11.1); RBC 4.72 M/mm3 (3.60-5.2); RDW 17.5 % (11.6-15.6); WHITE BLOOD COUNT 6.1 K/mm3 (4.0-10.0)
[2019-01-04] MEDS ORDERED: INSULIN (LEVEMIR) 100 UNITS/ML UNITS SQ SCH (07:00)
[2019-01-04 07:04] LABS: INR 1.15 (0.83-1.09); PROTHROMBIN TIME (PATIENT) 13.6 SEC (9.7-13.0)
[2019-01-04 07:08] LABS: PLATELET COUNT 209 K/MM3 (134-434)
[2019-01-04 07:15] LABS: ANION GAP 8 MMOL/L (8-16); BLOOD UREA NITROGEN 14.3 mg/dL (7-18); CALCIUM 9.2 mg/dL (8.5-10.1); CHLORIDE 103 mmol/L (98-107); CO2 26 mmol/L (21-32); CREATININE 0.8 mg/dL (0.55-1.3); GLUCOSE,RANDOM 206 mg/dL (74-106); MAGNESIUM 2.3 mg/dL (1.8-2.4); PHOSPHOROUS 3.4 mg/dL (2.5-4.9); POTASSIUM 4.4 mmol/L (3.5-5.1); SODIUM 138 mmol/L (136-145)
[2019-01-04] MEDS: INSULIN SLIDING SCALE (NOVOLOG) 1 VIAL SQ SCH ×2 (07:38→11:54)
[2019-01-04] MEDS ORDERED: ENOXAPARIN NA (PORCINE) 40 MG/0.4 ML DISP.SYRIN SQ SCH (10:00)
[2019-01-04] MEDS ORDERED: SENNOSIDES/DOCUSATE COMBO (SENNA PLUS) TABLET (UD) PO SCH (10:00)
[2019-01-04] MEDS ORDERED: POLYETHYLENE GLYCOL 3350 119 GM BTL PO SCH (10:00)
--- NOTE | 2019-01-04 11:04 | CON.CARD ---
Consult Consult Specialty:: Cardiology Referred by:: Hospitalist Reason for Consultation:: Cardiac evaluation - History of Present Illness Chief Complaint: Chest pain History of Present Illness: Patient is a 68 year old female with underlying history of HTN, DM, hypercholesterolemia, bronchial asthma and anxiety who presents with intermittent chest discomfort with left had numbness which has been present for past 1 month and worsened over past 1 week. She denies shortness of breath or palpitations. She denies paroxysmal nocturnal dyspnea or orthopnea. She denies fever or chills. She denies nausea, vomiting, diarrhea or abdominal pain. She denies headache or lightheadedness. - History Source History Provided By: Patient, Medical Record Limitations to Obtaining History: No Limitations - Past Medical History Cardio/Vascular: Yes: HTN, Hyperlipdemia Pulmonary: Yes: Asthma Endocrine: Yes: Diabetes Mellitus - Past Surgical History Past Surgical History: Yes: Cholecystectomy - Alcohol/Substance Use Hx Alcohol Use: No History of Substance Use: reports: None - Smoking History Smoking history: Never smoked Have you smoked in the past 12 months: No Home Medications - Allergies Allergies/Adverse Reactions: Allergies Allergy/AdvReac Type Severity Reaction Status Date / Time No Known Allergies Allergy Verified 01/03/19 15:53 - Home Medications Home Medications: Ambulatory Orders metFORMIN HCL [Glucophage -] 500 mg PO DAILY tablet 02/16/15 Insulin Glargine,Hum.rec.anlog [Lantus] 80 unit SQ AM 01/04/19 Sertraline HCl [Zoloft -] 50 mg PO DAILY 01/04/19 Family Disease History - Family Disease History Family Disease History: Heart Disease: Father (CAD, [place]), [place]: Mother (uterine/ ovarian CA) Other Family History: HTN, DM Review of Systems - Review of Systems Constitutional: denies: Chills, Fever Cardiovascular: reports: Chest Pain. denies: Palpitations, Shortness of Breath Respiratory: denies: Cough, Hemoptysis, Orthopnea, PND, SOB, SOB on Exertion Gastrointestinal: denies: Abdominal Pain, Constipation, Nausea, Rectal Bleeding , Vomiting Genitourinary: denies: Dysuria, Hematuria Musculoskeletal: denies: Back Pain, Joint Pain Neurological: denies: Dizziness, Headache, Seizure, Syncope Vital Signs: Vital Signs Temperature 98.3 F 01/04/19 03:29 Pulse Rate 84 01/04/19 03:29 Respiratory Rate 19 01/03/19 21:02 Blood Pressure 156/75 01/04/19 03:29 O2 Sat by Pulse Oximetry (%) 97 01/04/19 03:29 Eyes: Yes: PERRL HENT: Yes: Atraumatic Neck: Yes: Supple Respiratory: Yes: CTA Bilaterally Gastrointestinal: Yes: Normal Bowel Sounds, Soft. No: Tenderness Cardiovascular: Yes: Regular Rate and Rhythm JVD: No Carotid Bruit: No PMI: Non-Displaced Heart Sounds: Yes: S1, S2. No: Gallop Edema: No - Other Data Labs, Other Data: CBC, BMP 01/04/19 06:00 01/04/19 06:00 INR, PTT INR 1.15 (0.83-1.09) H 01/04/19 06:00 Troponin, BNP 01/03/19 01/04/19 17:53 06:00 Troponin I < 0.02 < 0.02 B-Natriuretic Peptide 129.3 H Normal sinus rhythm, normal ECG Echo: Pending Imaging - Results Chest X-ray: Report Reviewed (Unremarkable) Ultrasound: Report Reviewed (Abdominal US s/p cholecystectomy) EKG: Report Reviewed Problem List - Problems (1) HTN (hypertension) Code(s): I10 - ESSENTIAL (PRIMARY) HYPERTENSION Qualifiers: Hypertension type: essential hypertension Qualified Code(s): I10 - Essential (primary) hypertension (2) Hypercholesterolemia Code(s): E78.00 - PURE HYPERCHOLESTEROLEMIA, UNSPECIFIED (3) Diabetes mellitus Code(s): E11.9 - TYPE 2 DIABETES MELLITUS WITHOUT COMPLICATIONS Qualifiers: Diabetes mellitus type: type 2 Diabetes mellitus keno terminal operator insulin use: with care home use Diabetes mellitus complication status: without complication Qualified Code(s): E11.9 - Type 2 diabetes mellitus without complications; Z79.4 - nursing home (current) use of insulin (4) Bronchial asthma Code(s): J45.909 - UNSPECIFIED ASTHMA, UNCOMPLICATED Qualifiers: Asthma severity: unspecified severity Asthma persistence: unspecified Asthma complication type: unspecified Qualified Code(s): J45.909 - Unspecified asthma, uncomplicated (5) Exogenous obesity Code(s): E66.09 - OTHER OBESITY DUE TO EXCESS CALORIES (6) Chest pain Code(s): R07.9 - CHEST PAIN, UNSPECIFIED Qualifiers: Chest pain type: unspecified Qualified Code(s): R07.9 - Chest pain, unspecified Assessment/Plan 1. Chest pain syndrome 2. HTN 3. Hypercholesterolemia 4. DM 5. Exogenous obesity PLAN: 1. Cardiac enzymes are negative 2. Consider ACEI or ARB - Start Lisinopril 10 mg QD and uptitrate 3. ASA 81 mg QD 4. Fasting lipid panel and statin therapy 5. Echocardiography to assess LV/RV and systolic function 6. Consider stress testing but since she has difficulty walking on treadmill, would consider pharmacologic nuclear MPI Further plans are to follow Omar Sapp MD
--- NOTE | 2019-01-04 12:42 | EKG ---
Test Reason : Blood Pressure : / mmHG Vent. Rate : 083 BPM Atrial Rate : 083 BPM P-R Int : 186 ms QRS Dur : 096 ms QT Int : 402 ms P-R-T Axes : 032 -16 030 degrees QTc Int : 472 ms NORMAL SINUS RHYTHM NORMAL ECG WHEN COMPARED WITH ECG OF 03-JAN-2019 15:39, NO SIGNIFICANT CHANGE WAS FOUND Confirmed by Elie Light MD ([id number]) on 01/04/2019 12:42:45 PM Referred By: Confirmed By:Elie Light MD
--- NOTE | 2019-01-04 12:46 | EKG ---
Test Reason : Blood Pressure : / mmHG Vent. Rate : 079 BPM Atrial Rate : 079 BPM P-R Int : 170 ms QRS Dur : 094 ms QT Int : 384 ms P-R-T Axes : 054 -10 043 degrees QTc Int : 440 ms NORMAL SINUS RHYTHM LOW VOLTAGE QRS BORDERLINE ECG Confirmed by Elie Light MD ([id number]) on 01/04/2019 12:46:03 PM Referred By: Confirmed By:Elie Light MD
--- NOTE | 2019-01-04 13:31 | PN ---
Teaching Attending Note Name of Resident: Dona Goldstein ATTENDING PHYSICIAN STATEMENT I saw and evaluated the patient. I reviewed the resident's note and discussed the case with the resident. I agree with the resident's findings and plan as documented. SUBJECTIVE:CP now resolved. states it was different last night as she had L finger numbness. had stress test 4 years ago in preparation for bariatric surgery which was never done (was not cleared by assigner). as per was normal. was able to run on treadmill at that time but due to hip pain does not think she can run on treadmill. denies Cp, SOB, fever, chills, N/V/D Hx of tobacco use family history not significant for cardiac disease (father of [place] in late 70 's) OBJECTIVE: Last Vital Signs Temp Pulse Resp BP Pulse Ox 98.3 F 84 19 156/75 97 01/04/19 03:29 01/04/19 03:29 01/03/19 21:02 01/04/19 03:29 01/04/19 03:29 General NAD CV S1 S2 RRR no murmur/rub/gallop no chest wall tenderness Lungs CTA B/L no wheezing/rales/rhonchi Abdomen soft NT/ND obese ASSESSMENT AND PLAN: 68yo F wtih PMH HTn,. DM, dyslipidemia, obesity, panic attacks presented to the Er with intermittent CP x1 month now with assoc L hand numbness 1. CP- Episode last night sounds different than previous episodes, in setting of multiple significant risk factors pt would benefit from stress testing. cardiac enzymes neg x2. obtain NMST as can not tolerate running on treadmill at this time due to pain. cont asa. echo pending. cardio consulted 2. HTN- not at goal. re-start home medications 3. DM-A1c 7.8 hold oral agents. re-start on discharge 4. LUQ pain- as per report was c/o abdominal pain which now has resolved. does suffer from intermittent constipation. U/s ordered. will f/u results. bowel regimen for constipation 5. DVT ppx- lovenox 6. possible d/c later today pending results of stress test
[2019-01-04] MEDS ORDERED: REGADENOSON 0.4 MG/5 ML PRE-FILLED SYRINGE IVPUSH ONE ×2 (13:45→13:51)
--- NOTE | 2019-01-04 16:13 | DS ---
Physical Exam: SUBJECTIVE: Patient seen and reports her pain has improved. OBJECTIVE: Vital Signs Temperature 97.5 F L 01/04/19 16:49 Pulse Rate 72 01/04/19 16:49 Respiratory Rate 18 01/04/19 16:49 Blood Pressure 143/79 01/04/19 16:49 O2 Sat by Pulse Oximetry (%) 96 01/04/19 16:49 PHYSICAL EXAM GENERAL: The patient is awake, alert, and fully oriented, in no acute distress. Patient is morbidly obese HEAD: Normal with no signs of trauma. EYES: PERRL, extraocular movements intact ENT: moist mucous membranes. LUNGS: Breath sounds equal, clear to auscultation bilaterally, no wheezes, no crackles, no accessory muscle use. HEART: Regular rate and rhythm, S1, S2 without murmur, rub or gallop. ABDOMEN: Soft, nontender, nondistended, normoactive bowel sounds, . EXTREMITIES: 2+ pulses, warm, well-perfused, no edema. SKIN: Warm, dry, normal turgor, no rashes or lesions noted. LABS CBCD WBC 6.1 K/mm3 (4.0-10.0) 01/04/19 06:00 RBC 4.72 M/mm3 (3.60-5.2) 01/04/19 06:00 Hgb 10.6 GM/dL (10.7-15.3) L 01/04/19 06:00 Hct 33.8 % (32.4-45.2) 01/04/19 06:00 MCV 71.7 fl (80-96) L 01/04/19 06:00 MCHC 31.3 g/dl (32.0-36.0) L 01/04/19 06:00 RDW 17.5 % (11.6-15.6) H 01/04/19 06:00 Plt Count 209 K/MM3 (134-434) 01/04/19 06:00 MPV 9.1 fl (7.5-11.1) 01/04/19 06:00 CMP Sodium 138 mmol/L (136-145) 01/04/19 06:00 Potassium 4.4 mmol/L (3.5-5.1) 01/04/19 06:00 Chloride 103 mmol/L (98-107) 01/04/19 06:00 Carbon Dioxide 26 mmol/L (21-32) 01/04/19 06:00 Anion Gap 8 MMOL/L (8-16) 01/04/19 06:00 BUN 14.3 mg/dL (7-18) 01/04/19 06:00 Creatinine 0.8 mg/dL (0.55-1.3) 01/04/19 06:00 Calcium 9.2 mg/dL (8.5-10.1) 01/04/19 06:00 Total Bilirubin 0.2 mg/dL (0.2-1) 01/03/19 17:53 AST 41 U/L (15-37) H 01/03/19 17:53 ALT 47 U/L (13-61) 01/03/19 17:53 Alkaline Phosphatase 69 U/L (45-117) 01/03/19 17:53 Total Protein 7.6 g/dl (6.4-8.2) 01/03/19 17:53 Albumin 3.9 g/dl (3.4-5.0) 01/03/19 17:53 HOSPITAL COURSE: Date of Admission:01/03/19 Patient is a 68 y/o female with a history of HTN, HLD, IDDM, asthma, and anxiety who presents for chest pain. patient trops negative x. patients EKG without any changes. patient underwent nuclear stress test shows normal LV function, normal perfusion of myocardium, no TID. Patients symptoms resolved and vitals stable for discharge. US: fatty liver vs hepatocellular disease Date of Discharge: 01/04/19 Minutes to complete discharge: 40 Discharge Summary Reason For Visit: CHEST PAIN Current Active Problems Bronchial asthma (Acute) Diabetes mellitus (Acute) Exogenous obesity (Acute) HTN (hypertension) (Acute) Hypercholesterolemia (Acute) Condition: Improved - Instructions Diet, Activity, Other Instructions: You were admitted to the hospital for chest pain. While you were here we evaluated the function of your heart. You had a stress test and we found that your heart is functioning appropriately. Please follow up with a social psychologist to continue to have your heart monitored. To optimize your heart function you will now take: Aspirin 81 mg daily by mouth Please continue your home medications as prescribed. Please follow up with your primary care physician within one week. At this time have your primary care physician check your cholesterol levels ( do not eat before this blood test). Return to the Emergency department if you have any nausea, vomiting, diarrhea, shortness of breath, dizziness, or worsening of your symptoms. Referrals: Omar Sapp MD [Staff Physician] - Disposition: HOME - Home Medications Comprehensive Discharge Medication List: Ambulatory Orders Acetaminophen [Tylenol .Extra-Strength -] 500 mg PO DAILY PRN 01/04/19 Aspirin 81 mg PO DAILY 01/04/19 Buspirone HCl [Buspar -] 5 mg PO BID 01/04/19 Cetirizine HCl 10 mg PO DAILY 01/04/19 Insulin Glargine,Hum.rec.anlog [Lantus] 80 unit SQ AM 01/04/19 Sertraline HCl [Zoloft -] 50 mg PO DAILY 01/04/19 Valsartan 160 mg PO DAILY 01/04/19 Zolpidem Tartrate [Ambien] 5 mg PO DAILY 01/04/19 metFORMIN HCL [Glucophage -] 1,000 mg PO BID 01/04/19 This patient is new to me today: No Emergency Visit: No Critical Care patient: No - Discharge Referral Referred to [facility] No
[2019-01-04 16:50] VITALS: BP 143/79; PULSE 72; TEMP 97.5
== END 2019-01-04 16:55 | disposition home or self-care (01) ==
LOC: JER 15:45 → JERBED 19:47
PROVIDERS: ADMIT Internal Medicine; ATTEND Internal Medicine
PROC: 3E033GC Introduction of Other Therapeutic Substance into Peripheral Vein, Percutaneous Approach (ICD-10-PCS; principal; 2019-01-03)
PROC: 3E023GC Introduction of Other Therapeutic Substance into Muscle, Percutaneous Approach (ICD-10-PCS; 2019-01-03)
DX: R07.9 Chest pain, unspecified (principal); I10 Essential (primary) hypertension; E78.00 Pure hypercholesterolemia, unspecified; E11.9 Type 2 diabetes mellitus without complications; Z79.4 Long term (current) use of insulin; J45.909 Unspecified asthma, uncomplicated; D64.9 Anemia, unspecified; F41.9 Anxiety disorder, unspecified; F41.0 Panic disorder [episodic paroxysmal anxiety]; K59.00 Constipation, unspecified; E66.09 Other obesity due to excess calories; Z68.42 Body mass index [BMI] 45.0-49.9, adult
CPT/HCPCS: 36415; 71046-TC-FY; 76700-TC; 78452-TC; 80048; 80053; 82962; 83036; 83735; 83880; 84100; 84484; 85025; 85027; 85610; 93005; 93010; 93017; 96372; 96374; 99284-25; A9502; G0378; J2785

== ENCOUNTER 2022-06-30 10:37 | Emergency (ER) | payer OTHER ==
[2022-06-30 10:55] VITALS: BMI 43.5
[2022-06-30 14:42] LABS: HEMATOCRIT 26.2 % (32.4-45.2); HEMOGLOBIN 7.8 GM/dL (10.7-15.3); MCHC 29.7 g/dl (32.0-36.0); MEAN PLT VOLUME 8.6 fl (7.5-11.1); PLATELET COUNT 239 10^3/uL (134-434); RBC 4.37 M/mm3 (3.60-5.2); RDW 20.4 % (11.6-15.6); WHITE BLOOD COUNT 7.5 K/mm3 (4.0-10.0)
[2022-06-30 14:49] LABS: INR 1.1 (0.83-1.09); PROTHROMBIN TIME (PATIENT) 12.7 SEC (9.7-13.0)
[2022-06-30] MEDS ORDERED: MECLIZINE HCL 12.5 MG TABLET PO ONE (14:50)
[2022-06-30 14:52] LABS: ACTIVATED PTT 26.6 SECONDS (25.2-36.5)
[2022-06-30 14:58] LABS: MCH 17.8 pg (25.7-33.7)
[2022-06-30 15:19] LABS: ALBUMIN 3.4 g/dl (3.4-5.0); BILIRUBIN,TOTAL 0.3 mg/dL (0.2-1); BLOOD UREA NITROGEN 15.5 mg/dL (7-18); CALCIUM 9.5 mg/dL (8.5-10.1); CREATININE 0.8 mg/dL (0.55-1.3); MAGNESIUM 1.8 mg/dL (1.8-2.4); TOT PROT 7.5 g/dl (6.4-8.2)
[2022-06-30] MEDS ORDERED: MECLIZINE HCL 12.5 MG TABLET ONE (15:20)
[2022-06-30 18:13] VITALS: BP 155/82; PULSE 75; RESP 16; TEMP 98
== END 2022-06-30 18:11 | disposition home or self-care (01) ==
LOC: JER 10:37
DX: D64.9 Anemia, unspecified (principal)
CPT/HCPCS: 0241U-QW; 36415; 76705-TC; 80053; 82272; 83690; 83735; 84100; 84484; 85027; 85610; 85730; 86850; 86900; 86901; 93005; 93010; 99285-25

== ENCOUNTER 2024-07-18 13:24 | Emergency (ER) | payer OTHER ==
[2024-07-18 13:40] VITALS: BP 176/72; PULSE 69; RESP 18; TEMP 98.2; BMI 43.4
[2024-07-18] MEDS ORDERED: ACETAMINOPHEN INJECTION 100 ML ONE (14:21)
[2024-07-18] MEDS: ACETAMINOPHEN 1000 MG/100 ML BAG IVPB ONE (14:36)
[2024-07-18 15:03] LABS: BASO % 0.4 % (0-2.0); EOS % 4.5 % (0-4.5); HEMATOCRIT 33.8 % (32.4-45.2); HEMOGLOBIN 10.9 GM/dL (10.7-15.3); LYMPH % 24.4 % (8-40); MCH 24.6 pg (25.7-33.7); MCHC 32.3 g/dl (32.0-36.0); MEAN CELL VOLUME 76.2 fl (80-96); MEAN PLT VOLUME 8.9 fl (7.5-11.1); MONO % 6.2 % (3.8-10.2); NEUT % 64.5 % (42.8-82.8); PLATELET COUNT 191 10^3/uL (134-434); RBC 4.44 M/mm3 (3.60-5.2); RDW 16.1 % (11.6-15.6); WHITE BLOOD COUNT 4.9 K/mm3 (4.0-10.0)
[2024-07-18 15:24] LABS: EPI CELLS 7 /uL (0-25.1); HYALINE CASTS 0 /uL (0-3.1); PH,URINE 5.5 (5.0-8.0); URINE APPEARANCE CLEAR; URINE BACTERIA >9,000 /uL (0-1359); URINE BILIRUBIN NEGATIVE (NEGATIVE); URINE COLOR YELLOW; URINE GLUCOSE (UA) NEGATIVE (NEGATIVE); URINE KETONE NEGATIVE (NEGATIVE); URINE LEUK ESTERASE TRACE (NEGATIVE); URINE NITRITE NEGATIVE (NEGATIVE); URINE PROTEIN NEGATIVE (NEGATIVE); URINE RBC 19 /uL (0-23.9); URINE UROBILINOGEN 0.2 mg/dL (0.2-1.0); URINE WBC 52 /uL (0-25.8)
[2024-07-18 15:25] LABS: POTASSIUM 4.2 mmol/L (3.5-5.1)
[2024-07-18 15:28] LABS: ALBUMIN 3.6 g/dl (3.4-5.0); BLOOD UREA NITROGEN 22.2 mg/dL (7-18); CALCIUM 9.4 mg/dL (8.5-10.1)
[2024-07-18 15:31] LABS: CREATININE 0.8 mg/dL (0.55-1.3)
[2024-07-18 15:33] LABS: BILIRUBIN,TOTAL 0.4 mg/dL (0.2-1); TOT PROT 7.1 g/dl (6.4-8.2)
[2024-07-18] MEDS ORDERED: LIDOCAINE 4% PATCH TP ONE (15:33)
[2024-07-18] MEDS: LIDOCAINE 5% TOPICAL PATCH TP ONE (15:36)
[2024-07-18] MEDS ORDERED: KETOROLAC TROMETHAMINE 15 MG/ML VIAL ONE (18:53)
[2024-07-18] MEDS: KETOROLAC TROMETHAMINE 15 MG/ML VIAL IVPUSH ONE (19:01)
[2024-07-18] MEDS ORDERED: LIDOCAINE PATCH REMOVAL MC SCH (22:00)
== END 2024-07-18 19:32 | disposition home or self-care (01) ==
LOC: JER 13:24
PROC: 3E033NZ Introduction of Analgesics, Hypnotics, Sedatives into Peripheral Vein, Percutaneous Approach (ICD-10-PCS; principal; 2024-07-18)
PROC: 3E0333Z Introduction of Anti-inflammatory into Peripheral Vein, Percutaneous Approach (ICD-10-PCS; 2024-07-18)
DX: M54.6 Pain in thoracic spine (principal); N30.00 Acute cystitis without hematuria
CPT/HCPCS: 36415; 74177-TC; 80053; 81003; 83690; 84484; 85025; 87086; 87186; 93005; 93010; 96374; 96375; 99285-25; J0131; Q9967